=== PATIENT | female | born 1990 | race Asian ===

== ENCOUNTER 2023-05-23 08:56 | Inpatient (IN) | payer OTHER ==
[~2023-05-23] VITALS: Ht 167.6 cm; Wt 62.6 kg
[2023-05-23] MEDS ORDERED: NALBUPHINE HCL 10 MG/ML AMP IVP PRN (09:30)
[2023-05-23] MEDS ORDERED: LR 500 ML IV ONE (09:30)
[2023-05-23] MEDS ORDERED: LR 1,000 ML IV SCH (09:30)
[2023-05-23] MEDS ORDERED: LR 1,000 ML IV ONE (09:30)
[2023-05-23] MEDS ORDERED: NALBUPHINE HCL 10 MG/ML AMP IM PRN (09:30)
[2023-05-23] MEDS ORDERED: TERBUTALINE SULFATE 1 MG/ML VIAL SUBCUT ONE (09:30)
[2023-05-23] MEDS ORDERED: OXYTOCIN/0.9 % SODIUM CHLORIDE 1,000 ML IV SCH ×2 (09:30→14:00)
[2023-05-23] MEDS ORDERED: LIGHT MINERAL OIL 10 ML VIAL MC ONE (09:40)
[2023-05-23] MEDS ORDERED: NALOXONE HCL 0.4 MG/ML AMP (NARCAN) ONE (09:40)
[2023-05-23] MEDS ORDERED: LIDOCAINE PF 1% 30ML(POUR BTL) INJ ONE (09:40)
[2023-05-23 10:21] LABS: BASOPHILS # (AUTO) 0.1 K/uL (0.0-0.2); BASOPHILS % (AUTO) 0.5 % (0.0-2.0); EOSINOPHILS % (AUTO) 0.2 % (0.0-4.0); HEMATOCRIT 38.4 % (36-48); HEMOGLOBIN 13.1 g/dL (12.0-16.0); LYMPHOCYTES # (AUTO) 1.5 K/uL (1.0-5.5); LYMPHOCYTES % (AUTO) 14.4 % (20.5-51.5); MEAN CORPUSCULAR HEMOGLOBIN 33 pg (27-31); MEAN CORPUSCULAR HGB CONC 34 % (32-36); MEAN CORPUSCULAR VOLUME 96 fL (79.0-98.0); MONOCYTES # (AUTO) 0.5 K/uL (0.0-1.0); MONOCYTES % (AUTO) 4.5 % (1.7-9.3); NEUTROPHILS # (AUTO) 8.3 K/uL (1.8-7.7); NEUTROPHILS % (AUTO) 80.4 % (40.0-70.0); PLATELET COUNT (AUTO) 193 K/uL (130-430); RED BLOOD CELL COUNT(AUTO) 3.99 MIL/uL (4.2-6.2); RED CELL DISTRIBUTION WIDTH 13.2 % (9.0-15.0); WHITE BLOOD COUNT (AUTO) 10.4 K/uL (4.8-10.8)
[2023-05-23] MEDS ORDERED: OXYTOCIN/0.9 % SODIUM CHLORIDE 1,000 ML IV ONE ×2 (10:29→14:00)
[2023-05-23] MEDS ORDERED: HYDROCORTISONE 0.5% CREAM 28.4 GM CREAM.GM. TP PRN (14:00)
[2023-05-23] MEDS ORDERED: METHYLERGONOVINE MALEATE 0.2 MG TABLET PO PRN (14:00)
[2023-05-23] MEDS ORDERED: OXYCODONE/ACETAMINOPHEN 5-325 TABLET PO PRN (14:00)
[2023-05-23] MEDS ORDERED: ANUSOL 1 EA SUPP.RECT (PREPARATION H) RC PRN (14:00)
[2023-05-23] MEDS ORDERED: LANOLIN 7 GM OINT. TP PRN (14:00)
[2023-05-23] MEDS ORDERED: DERMOPLAST SPRAY TP PRN (14:00)
[2023-05-23] MEDS ORDERED: WITCH HAZEL LEAF 1 MED.PAD MED.PAD TP PRN (14:00)
[2023-05-23 15:24] VITALS: BP_SYST 115; PULSE 77; RESP 28; TEMP 98.8
[2023-05-23] MEDS: OXYCODONE/ACETAMINOPHEN 5-325 TABLET PO PRN (19:56)
[2023-05-23] MEDS ORDERED: TEMAZEPAM 15 MG CAPSULE PO PRN (21:00)
[2023-05-23] MEDS ORDERED: SENNOSIDES/DOCUSATE SODIUM 1 TAB TABLET(SENOKOT-S) PO SCH (21:00)
[2023-05-24] MEDS: OXYCODONE/ACETAMINOPHEN 5-325 TABLET PO PRN (02:17)
[2023-05-24 06:33] LABS: HEMATOCRIT 29.3 % (36-48); HEMOGLOBIN 9.9 g/dL (12.0-16.0)
[2023-05-24] MEDS: DOCUSATE SODIUM 100 MG CAPSULE PO SCH ×2 (12:47→18:34)
[2023-05-24] MEDS: IBUPROFEN 600 MG TABLET PO PRN ×2 (12:47→18:35)
== END 2023-05-24 18:41 | disposition home or self-care (01) | DRG 806 ==
LOC: OBSVTOIN 08:56 → SPU 08:56
PROVIDERS: ADMIT Obstetrics & Gynecology; ATTEND Obstetrics & Gynecology
PROC: 10D07Z6 Extraction of Products of Conception, Vacuum, Via Natural or Artificial Opening (ICD-10-PCS; principal; 2023-05-23)
PROC: 0HQ9XZZ Repair Perineum Skin, External Approach (ICD-10-PCS; 2023-05-23)
DX: O77.0 Labor and delivery complicated by meconium in amniotic fluid (principal); R71.0 Precipitous drop in hematocrit; Z37.0 Single live birth; O70.0 First degree perineal laceration during delivery; Z3A.39 39 weeks gestation of pregnancy
CPT/HCPCS: 36415; 81002; 85018; 85025; 86592; 86886; 86900; 86901; J2001; J2310; J2590